=== PATIENT | male | born 1995 | race American Indian/Alaskan Native ===

== ENCOUNTER 2018-12-09 11:13 | Emergency (ER) | payer BC ==
[2018-12-09 11:34] VITALS: BP 114/67
[2018-12-09] MEDS ORDERED: ANTIVERT PO ONE (11:55)
[2018-12-09] MEDS ORDERED: ZOFRAN ODT PO ONE (11:55)
[2018-12-09 12:01] LABS: Basophils % (Auto) 0.2 % (0.0-1.8); Hematocrit 46.6 % (35.5-45.6); Hemoglobin 15.6 gm/dl (11.8-15.2); Lymphocytes # (Auto) 0.9 K/mm3 (1.2-5.4); Lymphocytes % (Auto) 6.3 % (13.4-35.0); Mean Corpuscular HGB Conc 33 % (32-34); Mean Corpuscular Volume 94 fl (84-94); Monocytes # (Auto) 0.9 K/mm3 (0.0-0.8); Monocytes % (Auto) 6.1 % (0.0-7.3); Platelet Count 229 K/mm3 (140-440); Red Blood Count 4.96 M/mm3 (3.65-5.03); Red Cell Distribution Width 13.7 % (13.2-15.2)
[2018-12-09 12:13] LABS: Alanine Aminotransferase 16 units/L (7-56); Albumin 4.7 g/dL (3.9-5); BUN/Creatinine Ratio 11; Blood Urea Nitrogen 10 mg/dL (9-20); Calcium 9.2 mg/dL (8.4-10.2); Hemolysis Index 10
--- NOTE | 2018-12-09 12:29 | Emergency Department Report ---
HPI - General Chief Complaint: Dizziness Time Seen by Provider: 12/09/18 11:33 - HPI HPI: This is a 23-year-old male who presents to ED complaining of some nausea and dizziness that started 2 days ago. Patient states that he had a similar experience about a year ago and was diagnosed with vertigo. Patient states when he sitting down is a bit better. He denies any trauma, injuries. ED Past Medical Hx - Past Medical History Previous Medical History?: No - Surgical History Past Surgical History?: Yes Additional Surgical History: TORSION - Social History Smoking Status: Never Smoker Substance Use Type: None - Medications Home Medications: Home Medications Medication Instructions Recorded Confirmed Last Taken Type Meclizine [Antivert] 25 mg PO TID PRN #30 tablet 12/09/18 Unknown Rx Ondansetron (Nf) [Zofran TAB] 8 mg PO Q8HR #20 tablet 12/09/18 Unknown Rx ED Review of Systems ROS: Stated complaint: DIZZY/WEAK/DEHYDRATED Other details as noted in HPI Comment: All other systems reviewed and negative Physical Exam - Physical Exam Vital Signs: Vital Signs 12/09/18 11:32 Temperature 97.9 F Pulse Rate 73 Blood Pressure 114/67 O2 Sat by Pulse 98 Oximetry Physical Exam: GENERAL: Alert and oriented x3, no apparent distress, Normal Gait, atraumatic. HEAD: Head is normocephalic and a-traumatic. EYES: Extra ocular muscles are intact. Pupils are equal, round, and reactive to light and accommodation. EARS: symetrical, atraumatic, non tender, ear canal clear and moderate cerumen, tympanic membrance non inflamed. gross auditory nml bilaterally. NOSE: Nose symetrical, Nontender,Nares appeared normal. MOUTH:Mouth is well hydrated and without lesions. Tonsils nonerythematous or swollen, Uvula midline, Tongue not elevated. Mucous membranes are moist. Posterior pharynx clear, no exudate or lesions. Patent airways. LUNGS: Symetrical with respiration, No wheezing, no rales or crackles, CTAB. HEART: S1, S2 present, regular rate and rhythm without murmur, no rubs, no gallops. Non tender to palpation NEUROLOGIC: The patient is cooperative with no focal neurologic deficits. Cranial nerves II through XII are grossly intact. Normal speech. SKIN: Warm and dry, No lesions, No ulceration or induration present. ED Course Vital Signs 12/09/18 11:32 Temperature 97.9 F Pulse Rate 73 Blood Pressure 114/67 O2 Sat by Pulse 98 Oximetry ED Medical Decision Making - Lab Data Result diagrams: 12/09/18 11:41 12/09/18 11:41 - Medical Decision Making This is a 23-year-old male presents to ED vertigo. Patient received meclizine ED and felt much better. Scars follow-up with primary care physician. Discussed the patient's symptoms worsen to return to ED. Critical care attestation.: If time is entered above; I have spent that time in minutes in the direct care of this critically ill patient, excluding procedure time. ED Disposition Clinical Impression: Vertigo Disposition: DC-01 TO HOME OR SELFCARE Is pt being admited?: No Does the pt Need Aspirin: No Condition: Stable Instructions: Vertigo (ED), Dizziness (ED) Additional Instructions: Make sure to follow up with the primary care physician as discussed. Take all your medications as you've been prescribed. If you have any worsening symptoms or develop new symptoms please return to ED immediately. Prescriptions: Meclizine [Antivert] 25 mg PO TID PRN #30 tablet PRN Reason: Vertigo Ondansetron (Nf) [Zofran TAB] 8 mg PO Q8HR #20 tablet Referrals: RAINER PATIÑO MD [Primary Care Provider] - 3-5 Days Forms: Work/School Release Form(ED) Time of Disposition: 13:07
--- NOTE | 2018-12-09 22:57 | Emergency Department Report ---
Blank Doc - Documentation Documentation: N/V intermittent since thursday today has gotten worst. No PMH. No fever, hot f lashes This initial assessment diagnostic orders/clinical plan/treatment (s) is/Are subject change based on patient's health status, clinical progression and re- assessment by fellow clinical providers in the ED. Further treatment and work-up at subsequent clinical providers discretion. Patient/guardians urged not to elope from their condition may be serious if not clinically assessed and manage d. Initial order include:
== END 2018-12-09 13:36 | disposition home or self-care (01) ==
LOC: ED 11:13
DX: R42 Dizziness and giddiness (principal)
CPT/HCPCS: 36415; 80053; 85025; 99283; Q0162